=== PATIENT | female | born 2000 | race African-American/Black ===

== ENCOUNTER 2023-11-14 19:03 | Emergency (ER) | payer OTHER ==
[2023-11-14 19:13] VITALS: BP 140/86; PULSE 96; RESP 20; TEMP 98.6; BMI 36.6
[2023-11-14 20:05] LABS: HEMOGLOBIN 12.9 GM/dL (10.7-15.3); MCH 26.5 pg (25.7-33.7); MCHC 32.4 g/dl (32.0-36.0); MEAN CELL VOLUME 81.8 fl (80-96); MEAN PLT VOLUME 8.1 fl (7.5-11.1); PLATELET COUNT 364 10^3/uL (134-434); RBC 4.89 M/mm3 (3.60-5.2); RDW 12.8 % (11.6-15.6)
[2023-11-14 20:07] LABS: VENOUS BASE EXCESS -2.8 mmol/L (-2-2); VENOUS PCO2 37.9 mmHg (38-52); VENOUS PH 7.38 (7.310-7.410)
[2023-11-14 20:21] LABS: POTASSIUM 3.7 mmol/L (3.5-5.1)
[2023-11-14 20:23] LABS: ALBUMIN 3.6 g/dl (3.4-5.0); BLOOD UREA NITROGEN 9.9 mg/dL (7-18); CALCIUM 9.3 mg/dL (8.5-10.1)
[2023-11-14 20:27] LABS: CREATININE 0.7 mg/dL (0.55-1.3)
[2023-11-14 20:28] LABS: BILIRUBIN,TOTAL 0.4 mg/dL (0.2-1); TOT PROT 7.2 g/dl (6.4-8.2)
[2023-11-14 20:33] LABS: EPI CELLS 19 /uL (0-25.1); HYALINE CASTS 0 /uL (0-3.1); PH,URINE 5.5 (5.0-8.0); URINE APPEARANCE CLEAR; URINE BACTERIA 522 /uL (0-1359); URINE BILIRUBIN NEGATIVE (NEGATIVE); URINE COLOR YELLOW; URINE GLUCOSE (UA) 3+ (NEGATIVE); URINE KETONE TRACE (NEGATIVE); URINE LEUK ESTERASE TRACE (NEGATIVE); URINE NITRITE NEGATIVE (NEGATIVE); URINE PROTEIN NEGATIVE (NEGATIVE); URINE RBC 599 /uL (0-23.9); URINE UROBILINOGEN 0.2 mg/dL (0.2-1.0); URINE WBC 193 /uL (0-25.8)
[2023-11-14 20:38] LABS: HCG,QUALITATIVE URINE NEGATIVE
[2023-11-14] MEDS ORDERED: INSULIN ASPART SLIDING SCALE (NOVOLOG) 1 VIAL SQ ONE (20:45)
[2023-11-14] MEDS ORDERED: POTASSIUM CHLORIDE TABS 20 MEQ TABLET.ER (FP) PO ONE ×2 (20:45→21:33)
[2023-11-14] MEDS: INSULIN (NOVOLOG) ASPART 100 UNITS/ML 10ML VIAL SQ ONE (20:54)
[2023-11-14] MEDS: SODIUM CHLORIDE 0.9% 500 ML INFUS.BAG IV ONE (20:54)
[2023-11-14] MEDS: POTASSIUM CHLORIDE TABS 20 MEQ TABLET.ER (FP) PO ONE ×2 (20:55)
[2023-11-14] MEDS ORDERED: CEPHALEXIN MONOHYDRATE 500 MG CAPSULE (UD) ONE (21:31)
[2023-11-14] MEDS: POTASSIUM CHLORIDE ORAL LIQUID 20 MEQ/15 ML PO ONE (21:38)
[2023-11-14] MEDS: CEPHALEXIN MONOHYDRATE 500 MG CAPSULE (UD) PO ONE (21:38)
== END 2023-11-14 22:03 | disposition home or self-care (01) ==
LOC: JER 19:03
PROC: 3E013GC Introduction of Other Therapeutic Substance into Subcutaneous Tissue, Percutaneous Approach (ICD-10-PCS; principal; 2023-11-14)
DX: E11.65 Type 2 diabetes mellitus with hyperglycemia (principal); E11.10 Type 2 diabetes mellitus with ketoacidosis without coma; N39.0 Urinary tract infection, site not specified; Z79.4 Long term (current) use of insulin
CPT/HCPCS: 36415; 80053; 81003; 82010; 82803; 82962; 84703; 85027; 87077; 87086; 99284-25

== ENCOUNTER 2024-01-10 00:01 | Emergency (ER) | payer OTHER ==
[2024-01-10 00:15] VITALS: BP 131/88; PULSE 103; RESP 18; TEMP 97.9; BMI 36.6
[2024-01-10 00:57] LABS: EPI CELLS 32 /uL (0-25.1); HYALINE CASTS 3 /uL (0-3.1); PH,URINE 5.5 (5.0-8.0); URINE APPEARANCE CLOUDY; URINE BACTERIA 1632 /uL (0-1359); URINE BILIRUBIN NEGATIVE (NEGATIVE); URINE COLOR YELLOW; URINE GLUCOSE (UA) 3+ (NEGATIVE); URINE KETONE NEGATIVE (NEGATIVE); URINE LEUK ESTERASE NEGATIVE (NEGATIVE); URINE NITRITE NEGATIVE (NEGATIVE); URINE PROTEIN 1+ (NEGATIVE); URINE RBC 163 /uL (0-23.9); URINE UROBILINOGEN 0.2 mg/dL (0.2-1.0)
[2024-01-10] MEDS ORDERED: CEPHALEXIN MONOHYDRATE 500 MG CAPSULE (UD) PO ONE (01:07)
[2024-01-10 01:09] LABS: HCG,QUALITATIVE URINE Negative
[2024-01-10] MEDS: CEFUROXIME AXETIL 500 MG TABLET PO ONE (01:48)
[2024-01-10 13:56] LABS: URINE WBC 467 /uL (0-25.8)
== END 2024-01-10 01:49 | disposition home or self-care (01) ==
LOC: JER 00:01
DX: R35.0 Frequency of micturition (principal); N39.0 Urinary tract infection, site not specified; R30.0 Dysuria
CPT/HCPCS: 81003; 84703; 87086; 87186; 99283-25